=== PATIENT | male | born 1975 | race Caucasian/White ===

== ENCOUNTER 2022-04-02 15:16 | Emergency (ER) | payer BC ==
[2022-04-02] MEDS ORDERED: DIPH,PERTUS(ACELL)TETVAC-LF 0.5 ML VIAL IM ONE (15:42)
--- NOTE | 2022-04-02 15:49 | ED ---
Head Injury HPI - General Source: patient, RN notes reviewed Mode of arrival: ambulatory Limitations: no limitations <Ken Rojas - Last Filed: 04/02/22 15:47> <Neptali Humphries - Last Filed: 04/02/22 18:34> <Arabella White - Last Filed: 04/03/22 02:11> - General Stated complaint: Fall-Facial injury Time Seen by Provider: 04/02/22 16:39 - History of Present Illness Initial comments: 46 show male presents emergency Department chief complaint of fall, facial trauma. Patient states she is on top was 16 foot ladder when it buckled and half. Patient states he fell straight down into his face. He states he landed on the ground in the mold she surface. Patient states that he has facial pain, pain along his frontal teeth, nose laceration. He is unsure when his last tetanus was. He does complain of mild facial pain and minimal headache denies neck pain, back pain, upper or lower extremity pain. Patient be is controlled. Patient states it's difficult to breathe out of his nose. (Ken Rojas) 46-year-old previously healthy male who presents emergency department after he fell off of a ladder. States that the ladder gave out from underneath him and he fell from a height of 16 foot. States that he landed on his face. There was a branch that he landed on that he thinks hit him in the face. Sustained a laceration to his nose. He denies any headaches or visual changes. No neck or back pain. No eye pain. He did not take any medications for his pain. Unsure when his last tetanus dose was. No confusion reported. Patient ambulatory without difficulty. No other alleviating, precipitating or modifying factors (Arabella White) - Related Data Home Medications Medication Instructions Recorded Confirmed Loratadine [Claritin] 10 mg PO DAILY PRN 04/02/22 04/02/22 Previous Rx's Medication Instructions Recorded Cephalexin [Keflex] 500 mg PO Q6HR #28 cap 04/02/22 Allergies/Adverse reactions: Allergies Allergy/AdvReac Type Severity Reaction Status Date / Time No Known Allergies Allergy Unverified 04/02/22 17:24 Review of Systems ROS Other: All systems not noted in ROS Statement are negative. <Ken Rojas - Last Filed: 04/02/22 15:47> ROS Other: All systems not noted in ROS Statement are negative. <Neptali Humphries - Last Filed: 04/02/22 18:34> ROS Other: All systems not noted in ROS Statement are negative. <Arabella White - Last Filed: 04/03/22 02:11> ROS Statement: Those systems with pertinent positive or pertinent negative responses have been documented in the HPI. Course <Arabella White - Last Filed: 04/03/22 02:11> Vital Signs 04/02/22 17:26 Temperature 97.0 F L Pulse Rate 62 Respiratory 16 Rate Blood Pressure 119/97 O2 Sat by Pulse 98 Oximetry - Reevaluation(s) Reevaluation #1: Spoke with Dr. Chung 04/02/22 17:20 (ChrsitopherArabella A) Procedures - Laceration Laceration #1 Consent Obtained: verbal consent Indication: laceration Site: face (nose ) Description: irregular Depth: simple, single layer Anesthetic Used: lidocaine 1% (with LET) Pre-repair: irrigated extensively Type of Sutures: nylon Size of Sutures: 5-0 Number of Sutures: 6 Technique: simple, interrupted Patient Tolerated Procedure: well, no complications <Neptali Humphries - Last Filed: 04/02/22 18:34> - Laceration Laceration #1 Additional Comments: nasal bone fragment removed. (Neptali Humphries) Medical Decision Making <Arabella White - Last Filed: 04/03/22 02:11> - Medical Decision Making Was pt. sent in by a medical professional or institution? @ -No Did you speak to anyone other than the patient for history? @ -No Did you review nursing and triage notes? @ -Yes and I agree Were old charts reviewed? @ -[outside hosp., previous admissions, EMS record, old EKG, old radiological studies, urgent care reports/EKGs, [facility] records?] Differential Diagnosis? @ -[chest pain, altered mental status abdominal pain women, abdominal pain men, vaginal bleeding, weakness, fever, dyspnea, syncope, headache, dizziness, GI bleed, back pain, seizure] EKG interpreted by me (3pts min.)? @ -[none] X-rays interpreted by me (1pt min.)? @ -[none] CT interpreted by me (1pt min.)? @ -[none] U/S interpreted by me (1pt. min.)? @ -[none] What testing was considered but not performed? (CT, X-rays, U/S, labs)? Why? @ [CT, X-rays, U/S, labs? Why?] What meds were considered but not given? Why? @ -[none] Did you discuss the management of the patient with other professionals? @ -[professionals i.e. Dr, PA, POCKETBOOK MAKER, Lab, RT, Psych Nurse, Guide Plant, Decision Support Analyst, Teacher, Asw Specialist, correctional counselor/case manager? Give summary] Did you reconcile home meds? @ -No Was smoking cessation discussed for >3mins.? @ -No Was critical care preformed (if so, how long)? @ -No Were there social determinants of health that impacted care today? How? (Homelessness, low income, unemployed, alcoholism, drug addiction, transportation, low edu. Level, literacy, decrease access to med. care, prison, rehab)? @ None Was there de-escalation of care discussed even if they declined? (Discuss DNR or withdrawal of care, Hospice)? @ None What co-morbidities impacted this encounter? (DM, HTN, Smoking, COPD, CAD, Cancer, CVA, Hep., AIDS, mental health diagnosis, sleep apnea, morbid obesity)? @ -[DM, HTN, Smoking, COPD, CAD, Cancer, CVA, Hep., AIDS, mental health diagnosis, sleep apnea, morbid obesity?] Was patient admitted / discharged? Upon arrival the patient was placed into room 15. A thorough history and physical exam was performed. Patient sent for CT of his brain, cervical spine and facial bones. He is offered something for pain control however refuses. CT demonstrates blood fracture of the left eye. There is also comminuted nasal bone fractures. I did call and speak with Dr. Manning in regards to the patient's care. States that he will be able to follow the patient and remove his stitches. Laceration repair was performed by nurse practitioner. Patient is instructed to call the office in the morning for an appointment. He is instructed not to blow his nose. Keep the area clean and dry. Return for any new or worsening symptoms. Patient agreeable to treatment plan and discharged home in stable condition Undiagnosed new problem with uncertain prognosis? @ -[none] Drug Therapy requiring intensive monitoring for toxicity (Heparin, Nitro, Insulin, Cardizem)? @ No Were any procedures done? @ No Diagnosis/symptom? @ -[default] Acute, or Chronic, or Acute on Chronic? @ -[default] Uncomplicated (without systemic symptoms) or Complicated (systemic symptoms)? @ -[default] Side effects of treatment? @ None Exacerbation, Progression, or Severe Exacerbation] @ No Poses a threat to life or bodily function? @ No (Arabella White) Disposition <Ken Rojas - Last Filed: 04/02/22 15:47> <Neptali Humphries - Last Filed: 04/02/22 18:34> Is patient prescribed a controlled substance at d/c from ED?: No Time of Disposition: 18:02 <Arabella White - Last Filed: 04/03/22 02:11> Clinical Impression: Fall from height of greater than 3 feet, Facial laceration, Fracture, nasal bone, open, Orbital fracture Disposition: HOME SELF-CARE Condition: Stable Instructions (If sedation given, give patient instructions): Nasal Fracture (ED), Facial Fracture (ED), Facial Laceration (ED) Additional Instructions: Please call the office in the morning for an appointment. Dr. Chung will see you in the next few days. Take antibiotics as directed. Do not blow your nose. Return for any new or worsening symptoms Prescriptions: Cephalexin [Keflex] 500 mg PO Q6HR #28 cap Referrals: Chao Bolck MD [Primary Care Provider] - 1-2 days Fredo Rascon MD [STAFF PHYSICIAN] - 1-2 days
--- NOTE | 2022-04-02 16:45 | CT ---
EXAMINATION TYPE: CT brain cspine wo con DATE OF EXAM: 04/02/2022 COMPARISON: None HISTORY: Facial trauma CT DLP: 1293 mGycm Automated exposure control for dose reduction was used. Images of the brain and cervical spine obtained with no contrast. The ventricles and sulci appear normal. There is no mass effect or midline shift. No sign of intracra nial hemorrhage. Calvarium is intact. Skull base is intact. There is normal aeration of the mastoid s inuses. There is fluid level left maxillary sinus. Temporal bones show normal aeration. The cervical vertebra have normal alignment. No compression fracture. Posterior elements are intact. Facet joints are intact. There is minimal spurring of the endplates at C4-5 and C5-6 and C6-7. Preve rtebral soft tissues appear normal. IMPRESSION: Negative CT scan of the brain. No acute intracranial abnormality. Negative CT scan cervical spine. No fracture.
--- NOTE | 2022-04-02 16:50 | CT ---
EXAMINATION TYPE: CT facial bones wo con DATE OF EXAM: 04/02/2022 COMPARISON: None HISTORY: Facial trauma CT DLP: 1293 mGycm Automated exposure control for dose reduction was used. Images obtained from the top of the frontal sinuses to the bottom of the mandible without contrast. The mandibular ring appears intact. Temporomandibular joints are intact. There is fluid level in the left maxillary sinus. There is comminuted fracture of the nasal bone. There is slight depression of the floor of the left bony orbit. There is a mild blowout fracture with minimal intraorbital air bubbles at the inferior rectus muscle. There is some increased density in t he left-sided ethmoid sinus. Increased density seen in the anterior nasopharynx. The globes are symmetric. Frontal sinus appears normal. No skull fracture seen. The maxillary spine i s intact. There is normal aeration of the mastoid sinuses. The external auditory canals appear normal . No evidence of posterior fossa mass. IMPRESSION: Acute comminuted nasal bone fracture. Mild blowout fracture of the floor of the left bony orbit. Ther e is depression of the orbital floor 5 mm. Minimal hemorrhage in the left maxillary sinus and the lef t-sided ethmoid sinus.
[2022-04-02 17:29] VITALS: BP 119/97; PULSE 62; RESP 16; TEMP 97
[2022-04-02] MEDS ORDERED: LIDOCAINE 1% INJ 10MG/ML (30 ML VIAL-PF) SQ ONE (17:37)
[2022-04-02] MEDS ORDERED: LIDOCAINE/EPINEPHR/TETRACAINE 5 ML BOTTLE TOPICAL ONE (17:39)
[2022-04-02] MEDS ORDERED: ceFAZolin 1,000 MG VIAL (IM USE) IM STA (17:57)
== END 2022-04-02 18:52 | disposition home or self-care (01) ==
LOC: EC 15:16
DX: S02.2XXA Fracture of nasal bones, initial encounter for closed fracture (principal); S02.85XA Fracture of orbit, unspecified, initial encounter for closed fracture; S01.81XA Laceration without foreign body of other part of head, initial encounter; Z23 Encounter for immunization; W11.XXXA Fall on and from ladder, initial encounter
CPT/HCPCS: 72125; 70486; 70450; 90715; 99284; 90471; 96372; 12011; J0690; J2001